=== PATIENT | male | born 1980 | race Caucasian/White ===

== ENCOUNTER 2020-01-26 16:16 | Emergency (ER) | payer SELFPAY | END 2020-01-26 17:00 | disposition home or self-care (01) | LOC: NAV ERS 16:16 | DX: R41.82 Altered mental status, unspecified (principal); M19.90 Unspecified osteoarthritis, unspecified site; G47.00 Insomnia, unspecified; F17.210 Nicotine dependence, cigarettes, uncomplicated; Z79.899 Other long term (current) drug therapy | CPT/HCPCS: 99284 ==